=== PATIENT | male | born 1995 | race Caucasian/White ===

== ENCOUNTER 2017-05-28 17:42 | Emergency (ER) | payer MEDICAID ==
[~2017-05-28] VITALS: Ht 162.6 cm; Wt 60.0 kg
[2017-05-28 17:43] VITALS: BP 136/88; PULSE 103; RESP 16; TEMP 98.2; O2SAT 99
[2017-05-28] MEDS ORDERED: SODIUM CHLORIDE 0.9% FLUSH 10 ML FLUSH IVF PRN (19:00)
[2017-05-28] MEDS ORDERED: AZITHROMYCIN PWD FOR SUSP 1 GM PACKET PO ONE (19:00)
[2017-05-28] MEDS ORDERED: LIDOCAINE HCL 1% 50 ML VIAL XX ONE (19:00)
[2017-05-28 19:02] LABS: BACTERIA, URINE OCC /hpf; BLOOD, URINE LARGE (NEG); COMMENT (UR) CULTURE INDICATED; CULTURE IF INDICATED CULTURE INDICATED; GLUCOSE,URINE NEG (NEG); KETONE, URINE NEG (NEG); NITRITE,URINE NEG (NEG); PH, URINE 7.5 (5.0-8.5)
[2017-05-28 19:03] LABS: URINE COLOR LIGHT-BROWN (YELLW/STRAW)
--- NOTE | 2017-05-28 19:14 | PD ---
HPI . Dysuria and penile discharge Chief Complaint: Complaint Time Seen by Provider: 17:52 Travel History International Travel<30 days: No Contact w/Intl Traveler<30days: No Traveled to known affect area: No History of Present Illness HPI 21-year-old male patient presents to emergency room for evaluation of dysuria and penile discharge that first started this morning. Patient states he had sex yesterday with any sex partner and they did not use protection. Patient has any fevers, chills, abdominal pain, nausea, vomiting, diarrhea. Patient denies any testicular pain. PFSH Social History Alcohol Use: No Tobacco Use: No Substance Use: No Allergies-Medications (Allergen,Severity, Reaction): Coded Allergies: No Known Allergies (Unverified , 05/28/17) Reported Meds & Prescriptions Reported Meds & Active Scripts Active No Active Prescriptions or Reported Medications Review of Systems Except as stated in HPI: all other systems reviewed are Neg Physical Exam Narrative GENERAL: Well-nourished, well-developed 21-year-old patient in no acute distress. Nontoxic appearing. SKIN: Focused skin assessment warm/dry. HEAD: Normocephalic. Atraumatic. EYES: No scleral icterus. No injection or drainage. NECK: Supple, trachea midline. No JVD or lymphadenopathy. CARDIOVASCULAR: Regular rate and rhythm without murmurs, gallops, or rubs. RESPIRATORY: Breath sounds equal bilaterally. No accessory muscle use. GENITOURINARY: Circumcised. Testes descended bilaterally without evidence of rotation. No lesions or erythema. Small amount of white urethral discharge. GASTROINTESTINAL: Abdomen soft, non-tender, nondistended. MUSCULOSKELETAL: No cyanosis, or edema. Data Data Last Documented VS Vital Signs Date Time Temp Pulse Resp B/P (MAP) Pulse Ox O2 Delivery O2 Flow Rate FiO2 05/28/17 17:43 98.2 103 16 136/88 (104) 99 Orders Orders Urinalysis - C+S If Indicated (05/28/17 18:14) Gc And Chlamydia Pcr (05/28/17 18:14) Azithromycin Powd Pack (Zithromax Powd P (05/28/17 19:00) Ceftriaxone Inj (Rocephin Inj) (05/28/17 19:00) Sodium Chloride 0.9% Flush (Ns Flush) (05/28/17 19:00) Lidocaine 1% Inj (50 Ml) (Xylocaine 1% I (05/28/17 19:00) Urine Culture (05/28/17 18:00) Ed Discharge Order (05/28/17 19:14) Labs Laboratory Tests Test 05/28/17 18:00 Urine Color LIGHT-BROWN Urine Turbidity HAZY Urine pH 7.5 Urine Specific Painter 1.021 Urine Protein 30 mg/dL Urine Glucose (UA) NEG mg/dL Urine Ketones NEG mg/dL Urine Occult Blood LARGE Urine Nitrite NEG Urine Bilirubin NEG Urine Urobilinogen LESS THAN 2.0 MG/DL Urine Leukocyte Esterase LARGE Urine RBC /hpf Urine WBC /hpf Urine Amorphous Sediment OCC Urine Bacteria OCC /hpf Microscopic Urinalysis Comment CULTURE INDICATED MDM Medical Decision Making Medical Screen Exam Complete: Yes Emergency Medical Condition: Yes Differential Diagnosis Differential diagnosis include but not limited to STI, gonorrhea, chlamydia, UTI Narrative Course 21-year-old male patient presents emergency department for evaluation of dysuria and penile discharge x one day. Patient denies any fevers, chills, malaise. UA and voided gonorrhea chlamydia culture ordered and pending. Patient treated empirically with Rocephin and azithromycin. Patient discharged home with instructions to follow-up with his primary care, notify the new sex partner and uses protection subsequently. Diagnosis Primary Impression: STI (sexually transmitted infection) Additional Impression: Urinary tract infection Qualified Codes: N39.0 - Urinary tract infection, site not specified; R31.9 - Hematuria, unspecified Referrals: Primary Care Physician Patient Instructions: General Instructions, Sexually Transmitted Diseases (ED) Additional Instructions: Please return to emergency department if your symptoms return or worsen. Follow up with your primary care provider. Use protection with every new sexual encounter Notify the new sexual partner so they can get treatment Scripts Sulfamethoxazole-Trimethoprim (Bactrim DS) 800-160 Mg Tab 1 TAB PO BID for Infection for 3 Days, #6 TAB 0 Refills Prov: Esperanza Trejo Tamara ANDRADE 05/28/17 Disposition: 01 DISCHARGE HOME Condition: Stable NeilAlana caroraquel ANDRADE May 28, 2017 19:14
[2017-05-28] MEDS ORDERED: BACT800T5 PO (19:16)
[2017-05-28 22:49] LABS: CHLAMYDIA PCR NOT DETECTED (NOT DETECT); NEISSERIA PCR NOT DETECTED (NOT DETECT)
== END 2017-05-28 19:40 | disposition home or self-care (01) ==
LOC: NEPK 17:42
DX: A64 Unspecified sexually transmitted disease (principal); N39.0 Urinary tract infection, site not specified; R31.9 Hematuria, unspecified; B96.20 Unspecified Escherichia coli [E. coli] as the cause of diseases classified elsewhere
CPT/HCPCS: 81001; 87077; 87086; 87186; 87491; 87591; 96372; 99284; J0696